=== PATIENT | female | born 1955 | race Caucasian/White ===

== ENCOUNTER → 2017-02-13 | Outpatient (CLI) | payer OTHER ==
[~2017-02-13] MED LIST: ATV/1 PO; EPP3/2 IM; HYDR-1838 PO; IMT100 PO; OSEL75CA12 PO
--- NOTE | 2017-02-13 14:43 | DIAGNOSTIC IMAGING REPORT ---
LUMBAR SPINE 2 OR 3 VIEWS CLINICAL HISTORY: Low back pain COMPARISON STUDY: 04/05/2010 FINDINGS: There are 5 lumbar type vertebral bodies. There are degenerative changes with moderate disc space narrowing at the L5-S1 level. There are no acute fractures or subluxations. No destructive lesions are visualized. There is no pathologic bowel dilatation. IMPRESSION: Progressive degenerative changes at the L5-S1 level. Electronically signed by: Nils Benson M.D. 02/13/2017 2:42 PM Dictated Date/Time: 02/13/2017 2:41 PM
== END | disposition home or self-care (01) ==
LOC: C.RAD 14:14
PROVIDERS: ATTEND Family Medicine
DX: M54.5 Low back pain (principal)